=== PATIENT | female | born 1985 | race Caucasian/White ===

== ENCOUNTER → 2017-10-31 | Outpatient (REF) | payer OTHER ==
[2017-10-31 18:05] LABS: APPEARANCE, URINE HAZY (CLEAR); BACTERIA, URINE AUTO NEGATIVE (NEGATIVE); BILIRUBIN, URINE AUTO NEGATIVE (NEGATIVE); BLOOD, URINE BLOOD 2+ (NEGATIVE); COLOR, URINE YELLOW (YELLOW); GLUCOSE, URINE (UA) AUTO NEGATIVE (NEGATIVE); KETONE, URINE AUTO TRACE mg/dL (NEGATIVE); LEUKOCYTE ESTERASE, URINE AUTO NEGATIVE (NEGATIVE); MUCUS, URINE SMALL (NEGATIVE); NITRITE, URINE AUTO NEGATIVE (NEGATIVE); PROTEIN, URINE AUTO NEGATIVE (NEGATIVE); RBC, URINE AUTO 116 /HPF (0-3); SPECIFIC GRAVITY URINE AUTO 1.025 (1.002-1.035); SQUAMOUS EPITHELIAL CELL UR AU 1 /HPF (0-6); UROBILINOGEN, URINE AUTO 0.2 mg/dL (0.0-2.0); WBC, URINE AUTO 3 /HPF (0-3)
== END ==
LOC: M SFHCPLAZ 17:19
DX: N39.0 Urinary tract infection, site not specified (principal)
CPT/HCPCS: 81001

== ENCOUNTER → 2017-11-13 | Outpatient (CLI) | payer OTHER | LOC: M WHC 12:36 | DX: R10.2 Pelvic and perineal pain (principal) ==

== ENCOUNTER → 2017-11-16 | Outpatient (CLI) | payer OTHER | LOC: M RAD 17:39 | DX: M54.5 Low back pain (principal) | CPT/HCPCS: 72114 ==

== ENCOUNTER → 2018-04-27 | Outpatient (CLI) | payer OTHER | LOC: M RAD 09:59 | DX: M54.5 Low back pain (principal) | CPT/HCPCS: 72148 ==

== ENCOUNTER → 2018-12-19 | Outpatient (REF) | payer BC ==
[~2018-12-19] MED LIST: CYCL10TA PO; Flexeril PO; IBUP-1022 PO; TRAZ-252 PO; ZOLO50TA PO
[2018-12-19 19:40] LABS: FOLLICLE STIMULATING HORMONE 3.3 mIU/mL; FREE T4 1.03 NG/DL (0.76-1.46); HCG, SERUM QUANTITATIVE < 1.0 MIU/ML; LUTEINIZING HORMONE 0.8 mIU/mL; PROLACTIN 4.4 NG/ML; TESTOSTERONE 19 NG/DL (14-76); THYROID STIMULATING HORMONE 0.798 uIU/ML (0.358-3.740)
[2018-12-19 19:51] LABS: APPEARANCE, URINE CLEAR (CLEAR); BACTERIA, URINE AUTO NEGATIVE (NEGATIVE); BILIRUBIN, URINE AUTO NEGATIVE (NEGATIVE); BLOOD, URINE BLOOD NEGATIVE (NEGATIVE); COLOR, URINE YELLOW (YELLOW); GLUCOSE, URINE (UA) AUTO NEGATIVE (NEGATIVE); KETONE, URINE AUTO NEGATIVE (NEGATIVE); LEUKOCYTE ESTERASE, URINE AUTO NEGATIVE (NEGATIVE); MUCUS, URINE SMALL (NEGATIVE); NITRITE, URINE AUTO NEGATIVE (NEGATIVE); PROTEIN, URINE AUTO NEGATIVE (NEGATIVE); RBC, URINE AUTO 1 /HPF (0-3); SPECIFIC GRAVITY URINE AUTO 1.009 (1.002-1.035); SQUAMOUS EPITHELIAL CELL UR AU 3 /HPF (0-6); UROBILINOGEN, URINE AUTO 0.2 mg/dL (0.0-2.0); WBC, URINE AUTO 1 /HPF (0-3)
[2018-12-19 20:06] LABS: ESTRADIOL 27.5 PG/ML
== END ==
LOC: M SFHCPLAZ 13:53
PROVIDERS: ATTEND Family Medicine
DX: N92.6 Irregular menstruation, unspecified (principal); R35.0 Frequency of micturition

== ENCOUNTER → 2019-04-11 | Outpatient (REF) | payer BC ==
[2019-04-11 16:03] LABS: BLOOD UREA NITROGEN 12 MG/DL (7-18); C REACTIVE PROTEIN QUANTITATIV 0.34 MG/DL (0.00-0.30); CREATININE FOR GFR 0.86 MG/DL (0.55-1.30); GLOMERULAR FILTRATION RATE > 60.0 (>60); RHEUMATOID FACTOR QUANT < 10.0 IU/ML (<15.0)
[2019-04-17 00:10] LABS: ANTINUCLEAR ANTIBODIES DIRECT Negative (Negative); HLA-B27 Negative (.)
== END ==
LOC: M LABDRAW1 12:49
PROVIDERS: ATTEND Physician Assistant
DX: M51.36 Other intervertebral disc degeneration, lumbar region (principal)